=== PATIENT | male | born 1960 | race African-American/Black ===

== ENCOUNTER 2017-09-13 07:45 | Emergency (ER) | payer OTHER ==
[~2017-09-13] VITALS: Ht 185.4 cm; Wt 99.8 kg
[2017-09-13] MEDS ORDERED: Tetanus/Diptheria/Pertussis Vaccine 0.5ml Syr IM ONE (08:00)
[2017-09-13] MEDS ORDERED: Augmentin 875mg Tab ORAL ONE (08:00)
[2017-09-13] MEDS ORDERED: Neosporin Oint Ud Pkt TOP ONE (08:00)
[2017-09-13] MEDS ORDERED: AUGMENTIN 875-1 EAC1 ORAL (09:18)
--- NOTE | 2017-09-13 09:29 | Emergency Room Report ---
History of Present Illness General Chief Complaint: Lower Extremity Injury Source: EMS Present Illness HPI 57-year-old male presents ED complaining of puncture wound to his right foot. Brought in by EMS. Stepped on glass stem. Punctured his foot through his boot. Occurred at work today. Tetanus unknown. Notes pain and bleeding. Pain is dull, 2 out of 10, nonradiating. Denies any other injuries. No other aggravating or relieving factors. Denies any other associated symptoms Allergies: Coded Allergies: No Known Allergies (Unverified , 09/13/17) Patient History Past Medical History: HTN Past Surgical History: none Pertinent Family History: none Social History: Denies: smoking, alcohol use, drug use Immunizations: UTD Reviewed Nursing Documentation: PMH: Agreed; PSxH: Agreed Nursing Documentation-PMH Past Medical History: No History, Except For Hx Hypertension: Yes - borderline Review of Systems All Other Systems: negative except mentioned in HPI Physical Exam Vital Signs Date Time Temp Pulse Resp B/P (MAP) Pulse Ox O2 Delivery O2 Flow Rate FiO2 09/13/17 07:30 98.2 64 18 152/92 99 Room Air 98.2 Sp02 EP Interpretation: reviewed, normal General Appearance: no apparent distress, alert, GCS 15, non-toxic Head: normocephalic Eyes: bilateral eye normal inspection, bilateral eye PERRL ENT: normal ENT inspection Neck: normal inspection Respiratory: normal inspection Cardiovascular #1: normal inspection Gastrointestinal: normal inspection Rectal: deferred Genitourinary: no CVA tenderness Musculoskeletal: tender - puncture wound to base of R foot. no foreign body palpated Neurologic: alert, oriented x3, responsive, motor strength/tone normal, sensory intact, speech normal Psychiatric: normal inspection Skin: normal inspection Lymphatic: normal inspection Medical Decision Making Diagnostic Impression: Primary Impression: Puncture wound ER Course Hospital Course 57 yo M presents s/p stepping on glass through his boot Differential diagnoses include: Cellulitis, dermatitis, insect bite, abscess Clinical course Patient placed on stretcher. After initial history, physical exam reveals a male in no acute distress. On exam there is a puncture wound to the base of the right foot. Minimal bleeding noted. No evidence of foreign body based on exam and palpation. Wound irrigated. Bacitracin/dressing applied. Given tetanus and Augmentin. X- ray of foot confirms no evidence of foreign body. Patient states for discharge Diagnosis - puncture wound stable and discharged to home with prescription for augmentin. Instructed to followup with PMD. Instructed return to ED if symptoms recur or worsen Other X-Ray Diagnostic Results Other X-Ray Diagnostic Results : X-Ray ordered: R foot # of Views/Limited Vs Complete: 3 View Indication: Pain EP Interpretation: Yes Interpretation: no dislocation, no soft tissue swelling, no fractures, other - no FB identified Impression: No acute disease Electronically Signed by: Electronically signed by Kalia Whelan MD Last Vital Signs Date Time Temp Pulse Resp B/P (MAP) Pulse Ox O2 Delivery O2 Flow Rate FiO2 09/13/17 07:30 98.2 64 18 152/92 99 Room Air 98.2 Status: improved Disposition: HOME, SELF-CARE Condition: Stable Scripts Amoxicillin/Potassium Clav 875-125* (AUGMENTIN 875-125 TABLET*) 1 Each Tablet 1 TAB ORAL TWICE A DAY for 10 Days, #20 TAB Prov: Kalia Whelan MD 09/13/17 Patient Instructions: Puncture Wound, [id number] Kalia Whelan MD Sep 13, 2017 09:29
[2017-09-13] MEDS ORDERED: Bacitracin Oint UD TOPIC ONE (09:30)
[2017-09-13 09:31] VITALS: BP 152/92
--- NOTE | 2017-09-13 09:41 | Diagnostic Imaging Report ---
EXAM: XR Right Foot Complete, 3 or More Views CLINICAL HISTORY: PAIN TECHNIQUE: Frontal, lateral and oblique views of the right foot. COMPARISON: No relevant prior studies available. FINDINGS: Bones/joints: Minimal degenerative spurring of the right first MTP joint. Posterior calcaneal spur. No acute fracture. No dislocation. Soft tissues: Unremarkable. No radiopaque foreign body. IMPRESSION: No acute findings.
== END 2017-09-13 09:32 | disposition home or self-care (01) ==
LOC: EDBD 07:45 → EMR 07:55
DX: S91.331A Puncture wound without foreign body, right foot, initial encounter (principal); W22.8XXA Striking against or struck by other objects, initial encounter; Y92.89 Other specified places as the place of occurrence of the external cause; Y99.0 Civilian activity done for income or pay; Z23 Encounter for immunization; I10 Essential (primary) hypertension
CPT/HCPCS: 90471; 90715; 99283